=== PATIENT | female | born 1930 | race Caucasian/White ===

== ENCOUNTER 2020-09-19 14:50 | Inpatient (IN) ==
[2020-09-19] MEDS ORDERED: Ondansetron ODT 4 MG TAB.RAPDIS SL PRN (17:12)
[2020-09-19] MEDS: Budesonide/Formoterol 160/4.5 1 PUFF INH IH SCH (20:35)
[2020-09-20] MEDS: *HR* Heparin 5,000 UNIT/ML VIAL SQ SCH ×2 (06:39→18:50)
[2020-09-20 06:43] LABS: Basophils # 0.1 K/mcL (0.0-0.2); Basophils % 0.6 %; Eosinophils # 0.1 K/mcL (0.0-0.6); Eosinophils % 0.7 %; Hematocrit 40.5 % (35.3-44.9); Hemoglobin 13.4 g/dL (11.5-15.4); Immature Granulocytes % 0.3 % (0-4); Lymphocytes # 2.9 K/mcL (0.6-4.6); Lymphocytes % 30.1 %; Mean Corpuscular HGB Conc 33.1 g/dL (31.6-35.5); Mean Corpuscular Hemoglobin 30.5 pg (28.0-33.3); Mean Platelet Volume 13.3 fL (9.4-12.4); Monocytes # 0.7 K/mcL (0.0-1.3); Monocytes % 7.2 %; Neutrophils # 5.9 K/mcL (1.6-8.9); Platelet Count 411 K/mcL (140-400); Red Cell Distribution Width 14.1 % (11.5-14.5); Segmented Neutrophils % 61.1 %; White Blood Count 9.7 K/mcL (4.3-11.1)
[2020-09-20 07:04] LABS: Calcium 10.2 mg/dL (8.6-10.3); Potassium 3.7 mEq/L (3.5-5.1)
[2020-09-20] MEDS: Budesonide/Formoterol 160/4.5 1 PUFF INH IH SCH ×2 (07:56→21:10)
[2020-09-20] MEDS: Metoprolol XL (24 HR) Succ 50 MG TAB.ER.24H PO SCH (08:31)
[2020-09-20] MEDS: Aspirin Enteric Coated 81 MG Tablet PO SCH (08:31)
[2020-09-20] MEDS: Furosemide 20 MG TABLET PO SCH ×2 (08:31→18:50)
[2020-09-20] MEDS: (Roflumilast [Daliresp] 500 MCG Tablet) PO SCH (08:32)
[2020-09-20] MEDS ORDERED: haloperidoL 1 MG TABLET PO PRN (10:16)
[2020-09-21] MEDS: *HR* Heparin 5,000 UNIT/ML VIAL SQ SCH ×2 (05:32→17:42)
[2020-09-21] MEDS: Acetaminophen 325 MG TABLET PO PRN (05:51)
[2020-09-21] MEDS: lisinopriL 5 MG TABLET PO SCH (09:05)
[2020-09-21] MEDS: (Roflumilast [Daliresp] 500 MCG Tablet) PO SCH (09:05)
[2020-09-21] MEDS: Metoprolol XL (24 HR) Succ 50 MG TAB.ER.24H PO SCH (09:05)
[2020-09-21] MEDS: Furosemide 20 MG TABLET PO SCH ×2 (09:05→17:42)
[2020-09-21] MEDS: Aspirin Enteric Coated 81 MG Tablet PO SCH (09:05)
[2020-09-21] MEDS: Budesonide/Formoterol 160/4.5 1 PUFF INH IH SCH ×2 (10:24→21:49)
[2020-09-22] MEDS: *HR* Heparin 5,000 UNIT/ML VIAL SQ SCH ×2 (05:26→16:37)
[2020-09-22] MEDS: (Roflumilast [Daliresp] 500 MCG Tablet) PO SCH (08:16)
[2020-09-22] MEDS: Aspirin Enteric Coated 81 MG Tablet PO SCH (08:16)
[2020-09-22] MEDS: Furosemide 20 MG TABLET PO SCH ×2 (08:16→16:37)
[2020-09-22] MEDS: Metoprolol XL (24 HR) Succ 50 MG TAB.ER.24H PO SCH (08:16)
[2020-09-22] MEDS: Budesonide/Formoterol 160/4.5 1 PUFF INH IH SCH ×2 (09:59→21:05)
[2020-09-22] MEDS: Acetaminophen 325 MG TABLET PO PRN (22:28)
[2020-09-23] MEDS: *HR* Heparin 5,000 UNIT/ML VIAL SQ SCH ×2 (06:15→17:17)
[2020-09-23] MEDS: Metoprolol XL (24 HR) Succ 50 MG TAB.ER.24H PO SCH (07:57)
[2020-09-23] MEDS: Aspirin Enteric Coated 81 MG Tablet PO SCH (07:57)
[2020-09-23] MEDS: lisinopriL 5 MG TABLET PO SCH (07:57)
[2020-09-23] MEDS: Furosemide 20 MG TABLET PO SCH ×2 (07:57→17:17)
[2020-09-23] MEDS: (Roflumilast [Daliresp] 500 MCG Tablet) PO SCH (07:57)
[2020-09-23] MEDS: Budesonide/Formoterol 160/4.5 1 PUFF INH IH SCH ×2 (10:10→20:48)
[2020-09-23] MEDS ORDERED: Sennosides 8.6 MG TABLET PO PRN (13:21)
[2020-09-24] MEDS: *HR* Heparin 5,000 UNIT/ML VIAL SQ SCH ×2 (05:23→16:57)
[2020-09-24 08:26] LABS: Basophils % 0.4 %; Eosinophils # 0.1 K/mcL (0.0-0.6); Eosinophils % 0.6 %; Hematocrit 40.6 % (35.3-44.9); Hemoglobin 13.3 g/dL (11.5-15.4); Immature Granulocytes % 0.4 % (0-4); Lymphocytes % 27.6 %; Mean Corpuscular HGB Conc 32.8 g/dL (31.6-35.5); Mean Corpuscular Hemoglobin 30.8 pg (28.0-33.3); Mean Platelet Volume 13.8 fL (9.4-12.4); Monocytes # 0.7 K/mcL (0.0-1.3); Monocytes % 6.7 %; Neutrophils # 6.9 K/mcL (1.6-8.9); Platelet Count 365 K/mcL (140-400); Red Blood Count 4.32 M/mcL (3.82-4.97); Red Cell Distribution Width 14.7 % (11.5-14.5); Segmented Neutrophils % 64.3 %; White Blood Count 10.8 K/mcL (4.3-11.1)
[2020-09-24] MEDS: Budesonide/Formoterol 160/4.5 1 PUFF INH IH SCH ×2 (08:53→20:37)
[2020-09-24 08:54] LABS: Platelet Estimate Normal (Normal)
[2020-09-24 08:58] LABS: Calcium 10.5 mg/dL (8.6-10.3); Potassium 3.7 mEq/L (3.5-5.1)
[2020-09-24] MEDS: Furosemide 20 MG TABLET PO SCH ×2 (09:52→16:54)
[2020-09-24] MEDS: Metoprolol XL (24 HR) Succ 50 MG TAB.ER.24H PO SCH (09:52)
[2020-09-24] MEDS: Aspirin Enteric Coated 81 MG Tablet PO SCH (09:52)
[2020-09-24] MEDS: (Roflumilast [Daliresp] 500 MCG Tablet) PO SCH (09:53)
[2020-09-25] MEDS: *HR* Heparin 5,000 UNIT/ML VIAL SQ SCH ×2 (06:11→18:18)
[2020-09-25] MEDS: (Roflumilast [Daliresp] 500 MCG Tablet) PO SCH (09:17)
[2020-09-25] MEDS: lisinopriL 5 MG TABLET PO SCH (09:48)
[2020-09-25] MEDS: Metoprolol XL (24 HR) Succ 50 MG TAB.ER.24H PO SCH (09:48)
[2020-09-25] MEDS: Aspirin Enteric Coated 81 MG Tablet PO SCH (09:48)
[2020-09-25] MEDS: Furosemide 20 MG TABLET PO SCH ×2 (09:48→18:18)
[2020-09-25] MEDS: Budesonide/Formoterol 160/4.5 1 PUFF INH IH SCH ×2 (10:30→20:48)
[2020-09-26] MEDS: *HR* Heparin 5,000 UNIT/ML VIAL SQ SCH ×2 (05:25→17:13)
[2020-09-26] MEDS: Furosemide 20 MG TABLET PO SCH ×2 (10:24→17:13)
[2020-09-26] MEDS: Aspirin Enteric Coated 81 MG Tablet PO SCH (10:24)
[2020-09-26] MEDS: Metoprolol XL (24 HR) Succ 50 MG TAB.ER.24H PO SCH (10:24)
[2020-09-26] MEDS: (Roflumilast [Daliresp] 500 MCG Tablet) PO SCH (10:25)
[2020-09-26] MEDS: Budesonide/Formoterol 160/4.5 1 PUFF INH IH SCH ×2 (10:50→21:38)
[2020-09-27] MEDS: *HR* Heparin 5,000 UNIT/ML VIAL SQ SCH ×2 (06:20→17:17)
[2020-09-27] MEDS: lisinopriL 5 MG TABLET PO SCH (09:27)
[2020-09-27] MEDS: Furosemide 20 MG TABLET PO SCH ×2 (09:27→17:17)
[2020-09-27] MEDS: Aspirin Enteric Coated 81 MG Tablet PO SCH (09:27)
[2020-09-27] MEDS: (Roflumilast [Daliresp] 500 MCG Tablet) PO SCH (09:28)
[2020-09-27] MEDS: Metoprolol XL (24 HR) Succ 50 MG TAB.ER.24H PO SCH (09:28)
[2020-09-27] MEDS: Budesonide/Formoterol 160/4.5 1 PUFF INH IH SCH ×2 (10:22→21:31)
[2020-09-28] MEDS: *HR* Heparin 5,000 UNIT/ML VIAL SQ SCH ×2 (05:59→17:34)
[2020-09-28] MEDS: Aspirin Enteric Coated 81 MG Tablet PO SCH (09:51)
[2020-09-28] MEDS: Furosemide 20 MG TABLET PO SCH ×2 (09:53→17:34)
[2020-09-28] MEDS: Metoprolol XL (24 HR) Succ 50 MG TAB.ER.24H PO SCH (09:53)
[2020-09-28] MEDS: (Roflumilast [Daliresp] 500 MCG Tablet) PO SCH (09:53)
[2020-09-28] MEDS: Budesonide/Formoterol 160/4.5 1 PUFF INH IH SCH ×2 (10:40→22:16)
[2020-09-29 06:53] VITALS: RESP 18; TEMP 98.1
[2020-09-29] MEDS: Furosemide 20 MG TABLET PO SCH (07:16)
[2020-09-29] MEDS: *HR* Heparin 5,000 UNIT/ML VIAL SQ SCH (07:16)
[2020-09-29] MEDS: (Roflumilast [Daliresp] 500 MCG Tablet) PO SCH (07:20)
[2020-09-29 09:16] VITALS: BP 94/41; PULSE 71
[2020-09-29] MEDS: Aspirin Enteric Coated 81 MG Tablet PO SCH (09:16)
[2020-09-29] MEDS: Metoprolol XL (24 HR) Succ 50 MG TAB.ER.24H PO SCH (09:17)
[2020-09-29] MEDS: lisinopriL 5 MG TABLET PO SCH (09:17)
[2020-09-29] MEDS: Budesonide/Formoterol 160/4.5 1 PUFF INH IH SCH (10:03)
[2020-09-29 10:10] VITALS: O2SAT 99
== END 2020-09-29 11:34 | disposition home health service (06) | DRG 945 ==
LOC: INPPIK 18:49
PROVIDERS: ADMIT Family Medicine; ATTEND Family Medicine